=== PATIENT | male | born 2000 | race Two or more races ===

== ENCOUNTER 2020-11-06 22:03 | Emergency (ER) | payer OTHER ==
[~2020-11-06] VITALS: Ht 167.6 cm; Wt 63.5 kg
[2020-11-07 02:18] VITALS: BP 121/83
== END 2020-11-07 02:27 | disposition home or self-care (01) ==
LOC: ER 22:10
DX: S93.402A Sprain of unspecified ligament of left ankle, initial encounter (principal); X58.XXXA Exposure to other specified factors, initial encounter; Y93.89 Activity, other specified; Y92.89 Other specified places as the place of occurrence of the external cause; Y99.8 Other external cause status
CPT/HCPCS: 73610